=== PATIENT | female | born 1970 | race Caucasian/White ===

== ENCOUNTER 2018-04-04 17:09 | Observation (INO) | payer MEDICAID, OTHER ==
[~2018-04-04] VITALS: Ht 180.3 cm; Wt 68.0 kg
[~2018-04-04 17:09] MED LIST: ADV50250 IH; ALBU18HF2 IH; IBUP-1984 PO; PRED-352 PO
[2018-04-04 18:58] LABS: BASOPHILS # (AUTO) 0.1 X10'3 (0-0.2); BASOPHILS % (AUTO) 0.7 % (0-1); EOSINOPHILS # (AUTO) 0.3 X10'3 (0-0.9); EOSINOPHILS % (AUTO) 3.8 % (0-6); HEMOGLOBIN 13.5 g/dl (12.0-16.0); LYMPHOCYTES # (AUTO) 2.2 X10'3 (1.1-4.8); LYMPHOCYTES % (AUTO) 25.6 % (21-51); MEAN CORPUSCULAR HEMOGLOBIN 30.5 PG (27.0-31.0); MEAN CORPUSCULAR HGB CONC 33.7 g/dL (33.0-36.5); MEAN CORPUSCULAR VOLUME 90.7 FL (78-98); MEAN PLATELET VOLUME 8.2 FL (7.4-10.4); MONOCYTES # (AUTO) 0.6 X10'3 (0-0.9); MONOCYTES % (AUTO) 7.6 % (2-12); NEUTROPHILS # (AUTO) 5.3 X10'3 (1.8-7.7); NEUTROPHILS % (AUTO) 62.3 % (42-75); PLATELET COUNT 440 X10'3 (140-440); RED BLOOD COUNT 4.42 X10'6 (4.20-5.60); RED CELL DISTRIBUTION WIDTH 14.1 % (11.5-14.5); WHITE BLOOD COUNT 8.5 X10'3 (4.5-11.0)
[2018-04-04 19:15] LABS: PARTIAL THROMBOPLASTIN TIME 26 SECONDS (22-32)
[2018-04-04 19:16] LABS: ALANINE AMINOTRANSFERASE 23 U/L (12-78); ALBUMIN 4.1 G/DL (3.4-5.0); ALKALINE PHOSPHATASE 66 IU/L (46-116); ANION GAP 9 (8-16); ASPARTATE AMINO TRANSFERASE 15 U/L (10-37); BILIRUBIN,TOTAL 0.3 MG/DL (0.1-1.0); BLOOD UREA NITROGEN 15 MG/DL (7-18); CALCIUM 9.6 MG/DL (8.5-10.1); CHLORIDE 104 MMOL/L (99-107); CREATININE 0.94 MG/DL (0.40-0.90); GLUCOSE 106 MG/DL (70-104); POTASSIUM 3.8 MMOL/L (3.5-5.1); SODIUM 141 MMOL/L (135-145); TOTAL CARBON DIOXIDE 28.1 MMOL/L (24-32); TOTAL PROTEIN 8.4 G/DL (6.4-8.2); eGFR 63 ML/MIN
[2018-04-04] MEDS ORDERED: aspirin 81mg tab.chew PO ONE (21:05)
[2018-04-04] MEDS ORDERED: acetaminophen 325mg tablet PO PRN (21:40)
[2018-04-04] MEDS ORDERED: ondansetron/PF 4mg/2ml inj IV PRN (21:40)
[2018-04-04] MEDS ORDERED: magnesium hydroxide 30ml (MOM) UD suspension PO PRN (21:40)
[2018-04-04] MEDS ORDERED: mag hydrox/Alum hydrox/simeth 30ml oral suspension PO PRN (21:40)
[2018-04-04] MEDS ORDERED: nitroGLYCERIN 0.4mg SUBLingual tab SL PRN (21:40)
[2018-04-04] MEDS ORDERED: morphine 2 MG/ML inj. syringe IV PRN (21:40)
[2018-04-04] MEDS ORDERED: marijuana INH (22:58)
[2018-04-04 23:00] VITALS: BP 166/82
--- NOTE | 2018-04-04 23:00 | NUR ---
RECEIVED PT FROM ER FOLLOWING VERBAL REPORT FROM MEDICAL PRACTICE MANAGERLINDA SNOWDEN.
[2018-04-04] MEDS: morphine 4 MG/ML inj SYRINge IV PRN (23:43)
[2018-04-05] VITALS (15 sets, daily range): BP systolic 103–145; BP diastolic 65–89
[2018-04-05] MEDS ORDERED: nitroGLYCERIN 0.4mg SUBLingual tab SL PRN (00:15)
[2018-04-05] MEDS ORDERED: aminophylline 250mg/10ml inj. IV PRN (00:15)
[2018-04-05] MEDS ORDERED: metoprolol tartrate 1mg/ml inj IV PRN (00:15)
[2018-04-05] MEDS ORDERED: regadenoson 0.4mg/5ml syringe IV ONE ×2 (00:15→08:54)
[2018-04-05] MEDS: HYDROcodone/acetaminophen 5mg/325mg tablet PO PRN ×4 (00:47→19:08)
[2018-04-05] MEDS: morphine 4 MG/ML inj SYRINge IV PRN (03:37)
--- NOTE | 2018-04-05 06:26 | NUR ---
Problems reprioritized. Patient report given, questions answered & plan of care reviewed with POLO.
--- NOTE | 2018-04-05 06:41 | NUR ---
Patient in room [facility]. I have received report from LINDA BROWN and had the opportunity to ask questions and assume patient care.
[2018-04-05] MEDS ORDERED: aspirin 81mg tablet.DR PO SCH (08:00)
[2018-04-05] MEDS ORDERED: iohexol 350MG/ML 100ml bottle IV ONE (08:08)
--- NOTE | 2018-04-05 08:41 | NUR ---
patient down to ct procedure and then she will go straight to doni scan procedure from ct.
[2018-04-05] MEDS ORDERED: aminophylline inj. 10 ML IV ONE (08:54)
[2018-04-05] MEDS ORDERED: FLU VACC QUAD 2018(5 YR UP)/PF 60 MCG/0.5 ML SYRINGE IM ONE (10:00)
[2018-04-05] MEDS ORDERED: pneumococcal 23-VAL P-sac vacc 25 mcg/0.5ml vial IMVAC ONE (10:00)
--- NOTE | 2018-04-05 10:27 | NUR ---
Patient back to room from procedure. Visitor at bedside.
[2018-04-05] MEDS ORDERED: LORazepam 2 mg/ml vial IV ONE (11:55)
[2018-04-05] MEDS ORDERED: CYCL-1 PO (15:35)
[2018-04-05] MEDS ORDERED: OMEP40CA37 PO (15:35)
--- NOTE | 2018-04-05 17:09 | NUR ---
Discussed with patient discharge instructions and new prescriptions. Patient verbalizes understanding of teaching. List of where patient can establish primary care provider given to patient. Patient ready for dc and is awaiting for her ride.
--- NOTE | 2018-04-05 18:28 | NUR ---
Problems reprioritized. Patient report given, questions answered & plan of care reviewed with dread tavares.
--- NOTE | 2018-04-05 18:30 | NUR ---
Patient in room [facility] 355. I have received report from Neva MCKEON and had the opportunity to ask questions and assume patient care. Pt awaiting arrival of boyfriend. will continue to monitor.
--- NOTE | 2018-04-05 19:50 | NUR ---
Pt d/c home via private vehicle with significant other. IV removed with tip intact, tele d/c'd. all belongings with pt and medications sent home with pt. education materials and d/c paperwork went over with pt and given to pt to take home. pt stable and appropriate for discharge.
== END 2018-04-05 19:50 | disposition home or self-care (01) ==
LOC: ER 17:10 → ED HOLD 21:38 → EDBEDREQ 22:27 → CMPBEDREQ 23:17 → SUR 3N 23:22
PROVIDERS: ADMIT Internal Medicine; ATTEND Family Medicine
DX: R07.89 Other chest pain (principal); F41.9 Anxiety disorder, unspecified; J40 Bronchitis, not specified as acute or chronic; J18.9 Pneumonia, unspecified organism; F12.90 Cannabis use, unspecified, uncomplicated; F17.210 Nicotine dependence, cigarettes, uncomplicated; Z23 Encounter for immunization
CPT/HCPCS: 36415; 71045; 71275; 78452; 80053; 83880; 84484; 85025; 85610; 85730; 87070; 90732; 93005; 93017; 93306; 96374; 96375; 96376; 99284; A9500; G0378; J0280; J2060; J2270; Q2037; Q9967

== ENCOUNTER 2020-10-04 20:13 | Emergency (ER) | payer MEDICAID, OTHER ==
[~2020-10-04] VITALS: Ht 177.8 cm; Wt 83.6 kg
[~2020-10-04 20:13] MED LIST changes: -ADV50250 IH; -ALBU18HF2 IH; +CYCL-1 PO; -IBUP-1984 PO; -PRED-352 PO
[2020-10-04 22:28] LABS: BASOPHILS # (AUTO) 0.2 X10'3 (0-0.2); BASOPHILS % (AUTO) 1.1 % (0-1); EOSINOPHILS # (AUTO) 0.5 X10'3 (0-0.9); EOSINOPHILS % (AUTO) 3.4 % (0-6); HEMATOCRIT 35.6 % (35.0-45.0); HEMOGLOBIN 11.8 g/dl (12.0-16.0); LYMPHOCYTES # (AUTO) 2.2 X10'3 (1.1-4.8); LYMPHOCYTES % (AUTO) 16.3 % (21-51); MEAN CORPUSCULAR HEMOGLOBIN 30.2 PG (27.0-31.0); MEAN CORPUSCULAR HGB CONC 33.2 g/dL (33.0-36.5); MEAN CORPUSCULAR VOLUME 90.8 FL (78-98); MEAN PLATELET VOLUME 7.3 FL (7.4-10.4); MONOCYTES % (AUTO) 7.7 % (2-12); NEUTROPHILS # (AUTO) 9.6 X10'3 (1.8-7.7); NEUTROPHILS % (AUTO) 71.5 % (42-75); PLATELET COUNT 511 X10'3 (140-440); RED BLOOD COUNT 3.92 X10'6 (4.20-5.60); RED CELL DISTRIBUTION WIDTH 14.9 % (11.5-14.5); WHITE BLOOD COUNT 13.5 X10'3 (4.5-11.0)
[2020-10-04 22:47] LABS: ALANINE AMINOTRANSFERASE 14 U/L (12-78); ALBUMIN 3.4 G/DL (3.4-5.0); ALBUMIN/GLOBULIN RATIO 0.8 (1.1-1.5); ALKALINE PHOSPHATASE 83 IU/L (46-116); ANION GAP 10 (8-16); ASPARTATE AMINO TRANSFERASE 16 U/L (10-37); BILIRUBIN,TOTAL 0.2 MG/DL (0.1-1.0); BLOOD UREA NITROGEN 12 MG/DL (7-18); CALCIUM 9.1 MG/DL (8.5-10.1); CHLORIDE 106 MMOL/L (99-107); CREATININE 0.86 MG/DL (0.40-0.90); GLUCOSE 97 MG/DL (70-104); POTASSIUM 3.4 MMOL/L (3.5-5.1); SODIUM 142 MMOL/L (135-145); TOTAL CARBON DIOXIDE 26.4 MMOL/L (24-32); TOTAL PROTEIN 7.5 G/DL (6.4-8.2); eGFR 69 ML/MIN
[2020-10-04] MEDS ORDERED: GABA300C PO (23:05)
--- NOTE | 2020-10-04 23:09 | NUR ---
patient given dc instuctions and instructions to pick up driver prescription at her pharmacy. patient vs wnl. patient has no further complants. dc home.
[2020-10-04 23:11] VITALS: BP 132/89
== END 2020-10-04 23:11 | disposition home or self-care (01) ==
LOC: ER 20:13
DX: M54.10 Radiculopathy, site unspecified (principal); F12.10 Cannabis abuse, uncomplicated; Z88.1 Allergy status to other antibiotic agents
CPT/HCPCS: 36415; 80053; 85025; 99283

== ENCOUNTER 2021-07-11 09:10 | Inpatient (IN) | payer MEDICAID ==
[~2021-07-11] VITALS: Ht 177.8 cm; Wt 89.5 kg
[~2021-07-11 09:10] MED LIST changes: +GABA300C PO
--- NOTE | 2021-07-11 10:05 | NUR ---
BOBBY CASTRO AT BEDSIDE.
[2021-07-11 10:15] LABS: BASOPHILS # (AUTO) 0.1 X10'3 (0-0.2); BASOPHILS % (AUTO) 0.8 % (0-1); EOSINOPHILS # (AUTO) 0.2 X10'3 (0-0.9); EOSINOPHILS % (AUTO) 1.5 % (0-6); HEMATOCRIT 35.2 % (35.0-45.0); LYMPHOCYTES # (AUTO) 1.4 X10'3 (1.1-4.8); LYMPHOCYTES % (AUTO) 11.6 % (21-51); MEAN CORPUSCULAR HGB CONC 34.2 g/dL (33.0-36.5); MEAN CORPUSCULAR VOLUME 90.6 FL (78-98); MEAN PLATELET VOLUME 7.8 FL (7.4-10.4); MONOCYTES # (AUTO) 1.5 X10'3 (0-0.9); NEUTROPHILS # (AUTO) 9.1 X10'3 (1.8-7.7); NEUTROPHILS % (AUTO) 74.1 % (42-75); PLATELET COUNT 451 X10'3 (140-440); RED BLOOD COUNT 3.89 X10'6 (4.20-5.60); RED CELL DISTRIBUTION WIDTH 12.7 % (11.5-14.5); WHITE BLOOD COUNT 12.3 X10'3 (4.5-11.0)
[2021-07-11 10:27] LABS: ALANINE AMINOTRANSFERASE 14 U/L (12-78); ALBUMIN 3.1 G/DL (3.4-5.0); ALBUMIN/GLOBULIN RATIO 0.5 (1.1-1.5); ALKALINE PHOSPHATASE 89 IU/L (46-116); ANION GAP 11 (8-16); ASPARTATE AMINO TRANSFERASE 12 U/L (10-37); BILIRUBIN,TOTAL 0.4 MG/DL (0.1-1.0); BLOOD UREA NITROGEN 9 MG/DL (7-18); BUN/CREATININE RATIO 12.9 (6.6-38.0); CALCIUM 10.2 MG/DL (8.5-10.1); CHLORIDE 97 MMOL/L (99-107); GLUCOSE 103 MG/DL (70-104); POTASSIUM 3.9 MMOL/L (3.5-5.1); SODIUM 135 MMOL/L (135-145); TOTAL CARBON DIOXIDE 27.3 MMOL/L (24-32); TOTAL PROTEIN 8.9 G/DL (6.4-8.2); eGFR 88 ML/MIN
[2021-07-11 10:41] LABS: D-DIMER 4.12 MG/L FEU (0-0.50)
[2021-07-11] MEDS ORDERED: iohexol 350 MG/ML 50ML vial IV ONE (10:59)
[2021-07-11] MEDS ORDERED: heparin 10,000 units/1 ML INJ IV ONE ×6 (12:10→14:10)
[2021-07-11] MEDS ORDERED: heparin 25,000 UNIT/250ml bag 250 ML IV SCH ×3 (12:25→13:02)
[2021-07-11] MEDS ORDERED: heparin 10,000 units/1 ML INJ IV PRN ×2 (12:25→12:45)
[2021-07-11 12:51] LABS: APTT 28 SECONDS (22-32)
[2021-07-11] MEDS: heparin 25,000 UNIT/250ml bag 250 ML IV SCH (12:55)
[2021-07-11 13:14] LABS: BASOPHILS % (AUTO) 0.4 % (0-1); EOSINOPHILS # (AUTO) 0.1 X10'3 (0-0.9); HEMOGLOBIN 12.2 g/dl (12.0-16.0); LYMPHOCYTES # (AUTO) 1.2 X10'3 (1.1-4.8); MEAN CORPUSCULAR HEMOGLOBIN 29.7 PG (27.0-31.0); MEAN CORPUSCULAR HGB CONC 32.8 g/dL (33.0-36.5); MEAN CORPUSCULAR VOLUME 90.5 FL (78-98); MEAN PLATELET VOLUME 7.7 FL (7.4-10.4); MONOCYTES # (AUTO) 1.3 X10'3 (0-0.9); MONOCYTES % (AUTO) 10.8 % (2-12); NEUTROPHILS # (AUTO) 9.2 X10'3 (1.8-7.7); NEUTROPHILS % (AUTO) 77.8 % (42-75); PLATELET COUNT 485 X10'3 (140-440); RED BLOOD COUNT 4.09 X10'6 (4.20-5.60); RED CELL DISTRIBUTION WIDTH 12.8 % (11.5-14.5); WHITE BLOOD COUNT 11.8 X10'3 (4.5-11.0)
--- NOTE | 2021-07-11 13:36 | NUR ---
Patient reports increased pain, Spoke with Dr. Pathak regarding pain management. Dr. Pathak gave verbal order for morphine 4 mg IV once now.
[2021-07-11] MEDS ORDERED: ondansetron/PF 4mg/2ml inj IV ONE (13:40)
[2021-07-11] MEDS ORDERED: morphine 4 MG/ML inj SYRINge IV ONE ×2 (13:40)
[2021-07-11] MEDS ORDERED: albuterol 2.5 MG/3 ML nebule NEB PRN (14:10)
[2021-07-11] MEDS ORDERED: ipratropium/albuterol 3ml nebule NEB PRN (14:10)
[2021-07-11] MEDS ORDERED: magnesium hydroxide 30ml (MOM) UD suspension PO PRN (14:10)
[2021-07-11] MEDS ORDERED: mag hydrox/Alum hydrox/simeth 30ml oral suspension PO PRN (14:10)
[2021-07-11] MEDS ORDERED: POTASSIUM BICARB 20meq eff tab 20 MEQ TABLET.EFF PO PRN ×2 (14:10)
[2021-07-11] MEDS ORDERED: acetaminophen 325mg tablet PO PRN ×2 (14:10)
[2021-07-11] MEDS ORDERED: PERFLUTREN PROTEIN-A MICROSPHR (Optison) 0.22 MG/ML 3ML VIAL IV ONE (14:10)
[2021-07-11] MEDS ORDERED: HYDROcodone/acetaminophen 10/325mg tab PO PRN (14:10)
[2021-07-11] MEDS ORDERED: magnesium 2GM in 50ml NS 50 ML IV PRN (14:10)
[2021-07-11] MEDS ORDERED: HYDROcodone/acetaminophen 5mg/325mg tablet PO PRN (14:10)
[2021-07-11] MEDS ORDERED: magnesium 4gm in 100ml NS 100 ML IV PRN (14:10)
[2021-07-11] MEDS ORDERED: potassium CL 10mEq/100ml bag 100 ML IV PRN (14:10)
[2021-07-11] MEDS ORDERED: HYDROmorphone/PF 0.2 MG/ML SYRINGE IV PRN (14:10)
[2021-07-11] MEDS ORDERED: HYDR-3972 PO (14:21)
[2021-07-11] MEDS ORDERED: ZINC50TA67 PO (14:21)
[2021-07-11] MEDS ORDERED: BACL-11 PO (14:21)
[2021-07-11] MEDS ORDERED: DOCU100C40 PO (14:21)
[2021-07-11] MEDS ORDERED: ASCO-294 PO (14:21)
[2021-07-11] MEDS ORDERED: CHOL20004 PO (14:21)
[2021-07-11] MEDS ORDERED: CALC500T63 PO (14:21)
--- NOTE | 2021-07-11 14:48 | NUR ---
technician plant and maintenance at bedside.
[2021-07-11] MEDS: HYDROmorphone inj. 0.5 MG/0.5 ML DISP.SYRIN IV PRN (16:47)
[2021-07-11 18:00] VITALS: BP 130/76
[2021-07-11] MEDS: K and/or MAG REPLACEMENT MC SCH (20:00)
[2021-07-11] MEDS ORDERED: HYDROmorphone 1 mg/ml syringe IV PRN (20:11)
[2021-07-11] MEDS: docusate sod 100mg capsule PO SCH (20:16)
[2021-07-11 22:00] VITALS: BP 121/74
[2021-07-11] MEDS: heparin 10,000 units/1 ML INJ IV PRN (23:54)
--- NOTE | 2021-07-12 | NUR ---
heparin drip lab reports ptt 28 heparin bolus give see VAN drip rate adjusted
[2021-07-12 02:00] VITALS: BP 118/78
--- NOTE | 2021-07-12 06:26 | NUR ---
Problems reprioritized. Patient report given, questions answered & plan of care reviewed with Linnea MCKEON.
[2021-07-12 06:46] LABS: BASOPHILS # (AUTO) 0.1 X10'3 (0-0.2); EOSINOPHILS # (AUTO) 0.2 X10'3 (0-0.9); EOSINOPHILS % (AUTO) 2.3 % (0-6); HEMATOCRIT 34.8 % (35.0-45.0); HEMOGLOBIN 11.8 g/dl (12.0-16.0); LYMPHOCYTES # (AUTO) 1.6 X10'3 (1.1-4.8); LYMPHOCYTES % (AUTO) 17.2 % (21-51); MEAN CORPUSCULAR HEMOGLOBIN 31.2 PG (27.0-31.0); MEAN CORPUSCULAR HGB CONC 33.9 g/dL (33.0-36.5); MEAN PLATELET VOLUME 7.8 FL (7.4-10.4); MONOCYTES # (AUTO) 0.9 X10'3 (0-0.9); MONOCYTES % (AUTO) 10.2 % (2-12); NEUTROPHILS # (AUTO) 6.4 X10'3 (1.8-7.7); NEUTROPHILS % (AUTO) 69.3 % (42-75); PLATELET COUNT 393 X10'3 (140-440); RED BLOOD COUNT 3.78 X10'6 (4.20-5.60); RED CELL DISTRIBUTION WIDTH 12.7 % (11.5-14.5); WHITE BLOOD COUNT 9.3 X10'3 (4.5-11.0)
[2021-07-12] MEDS: heparin 25,000 UNIT/250ml bag 250 ML IV SCH ×2 (06:50→09:40)
--- NOTE | 2021-07-12 06:53 | NUR ---
Patient in room PCU 3024. I have received report from Jessica and Richelle. Had the opportunity to ask questions and assume patient care.
[2021-07-12 07:00] VITALS: BP 148/82
[2021-07-12 07:24] LABS: ALANINE AMINOTRANSFERASE 13 U/L (12-78); ALBUMIN 2.8 G/DL (3.4-5.0); ALBUMIN/GLOBULIN RATIO 0.5 (1.1-1.5); ALKALINE PHOSPHATASE 82 IU/L (46-116); ANION GAP 6 (8-16); ASPARTATE AMINO TRANSFERASE 14 U/L (10-37); BILIRUBIN,TOTAL 0.4 MG/DL (0.1-1.0); BLOOD UREA NITROGEN 10 MG/DL (7-18); BUN/CREATININE RATIO 15.6 (6.6-38.0); CALCIUM 9.9 MG/DL (8.5-10.1); CHLORIDE 100 MMOL/L (99-107); CREATININE 0.64 MG/DL (0.40-0.90); GLUCOSE 103 MG/DL (70-104); POTASSIUM 4.2 MMOL/L (3.5-5.1); SODIUM 134 MMOL/L (135-145); TOTAL CARBON DIOXIDE 27.6 MMOL/L (24-32); TOTAL PROTEIN 8.1 G/DL (6.4-8.2); eGFR > 90 ML/MIN
--- NOTE | 2021-07-12 07:32 | NUR ---
PAGER ID: [phone] MESSAGE: [id number] Sharifa Jansen: Patient says Biju and julianaed are making her itchy. Is requesting Benadryl. Can you put an order in? Teodora [facility] ext [phone]
--- NOTE | 2021-07-12 07:34 | NUR ---
responded to page, telephone order for patient to receive 1 time IV Benadryl dose of 50mg.
[2021-07-12] MEDS ORDERED: diphenhydrAMINE 50 mg/ml inj IV ONE (07:35)
[2021-07-12] MEDS: K and/or MAG REPLACEMENT MC SCH ×2 (08:00→20:00)
[2021-07-12] MEDS: docusate sod 100mg capsule PO SCH ×2 (08:28→20:13)
[2021-07-12] MEDS: HYDROmorphone inj. 0.5 MG/0.5 ML DISP.SYRIN IV PRN (08:28)
[2021-07-12 11:00] VITALS: BP 132/85
[2021-07-12] MEDS ORDERED: oxyCODONE/APAP 10/325mg tablet PO PRN (11:55)
[2021-07-12] MEDS ORDERED: oxyCODONE/APAP 5-325mg tablet PO PRN (11:55)
[2021-07-12] MEDS: HYDROmorphone 1 mg/ml syringe IV PRN ×2 (12:40→20:13)
[2021-07-12] MEDS: ondansetron/PF 4mg/2ml inj IV PRN ×2 (14:24→21:02)
[2021-07-12 15:00] VITALS: BP 122/81
[2021-07-12] MEDS: baclofen 10mg tablet PO SCH ×2 (16:56→23:20)
[2021-07-12 18:00] VITALS: BP 120/72
--- NOTE | 2021-07-12 18:30 | NUR ---
Patient in room PCU 3024. I have received report from Teodora MCKEON and had the opportunity to ask questions and assume patient care.
--- NOTE | 2021-07-12 18:30 | NUR ---
Patient in room PCU 3024. I have received report from Teodora MCKEON and had the opportunity to ask questions and assume patient care.
--- NOTE | 2021-07-12 18:39 | NUR ---
Problems reprioritized. Patient report given, questions answered & plan of care reviewed with Brigitte MCKEON.
[2021-07-12 22:00] VITALS: BP 125/73
[2021-07-13] MEDS: heparin 10,000 units/1 ML INJ IV PRN (01:43)
[2021-07-13] MEDS: heparin 25,000 UNIT/250ml bag 250 ML IV SCH ×2 (01:45→03:05)
[2021-07-13 02:00] VITALS: BP 125/73
--- NOTE | 2021-07-13 06:29 | NUR ---
Problems reprioritized. Patient report given, questions answered & plan of care reviewed with Teodora MCKEON.
[2021-07-13] MEDS: HYDROmorphone 1 mg/ml syringe IV PRN (06:46)
[2021-07-13 07:00] VITALS: BP 114/77
[2021-07-13] MEDS ORDERED: ascorbic acid 500mg tablet PO SCH (08:00)
[2021-07-13] MEDS ORDERED: non-formulary drug (Zinc 1 TAB) PO SCH (08:00)
[2021-07-13] MEDS: K and/or MAG REPLACEMENT MC SCH (08:00)
[2021-07-13] MEDS ORDERED: calcium carbonate 500mg tablet PO SCH (08:00)
[2021-07-13] MEDS ORDERED: cholecalciferol (vitamin D3) 1,000 unit (25mcg) tablet PO SCH (08:00)
[2021-07-13 08:12] LABS: BASOPHILS % (AUTO) 0.3 % (0-1); EOSINOPHILS # (AUTO) 0.3 X10'3 (0-0.9); EOSINOPHILS % (AUTO) 3.9 % (0-6); HEMATOCRIT 36.1 % (35.0-45.0); HEMOGLOBIN 12.2 g/dl (12.0-16.0); LYMPHOCYTES # (AUTO) 1.8 X10'3 (1.1-4.8); LYMPHOCYTES % (AUTO) 21.8 % (21-51); MEAN CORPUSCULAR HEMOGLOBIN 30.6 PG (27.0-31.0); MEAN CORPUSCULAR HGB CONC 33.6 g/dL (33.0-36.5); MEAN CORPUSCULAR VOLUME 90.8 FL (78-98); MEAN PLATELET VOLUME 7.8 FL (7.4-10.4); MONOCYTES # (AUTO) 0.7 X10'3 (0-0.9); MONOCYTES % (AUTO) 8.3 % (2-12); NEUTROPHILS # (AUTO) 5.5 X10'3 (1.8-7.7); NEUTROPHILS % (AUTO) 65.7 % (42-75); PLATELET COUNT 542 X10'3 (140-440); RED BLOOD COUNT 3.98 X10'6 (4.20-5.60); RED CELL DISTRIBUTION WIDTH 12.4 % (11.5-14.5); WHITE BLOOD COUNT 8.4 X10'3 (4.5-11.0)
[2021-07-13 08:34] LABS: ALANINE AMINOTRANSFERASE 16 U/L (12-78); ALBUMIN/GLOBULIN RATIO 0.6 (1.1-1.5); ALKALINE PHOSPHATASE 88 IU/L (46-116); ANION GAP 10 (8-16); ASPARTATE AMINO TRANSFERASE 15 U/L (10-37); BILIRUBIN,TOTAL 0.4 MG/DL (0.1-1.0); BLOOD UREA NITROGEN 9 MG/DL (7-18); BUN/CREATININE RATIO 12.2 (6.6-38.0); CALCIUM 9.9 MG/DL (8.5-10.1); CHLORIDE 100 MMOL/L (99-107); CREATININE 0.74 MG/DL (0.40-0.90); GLUCOSE 109 MG/DL (70-104); MAGNESIUM 2.1 MG/DL (1.5-2.4); POTASSIUM 3.8 MMOL/L (3.5-5.1); SODIUM 137 MMOL/L (135-145); TOTAL CARBON DIOXIDE 27.3 MMOL/L (24-32); TOTAL PROTEIN 8.4 G/DL (6.4-8.2); eGFR 82 ML/MIN
[2021-07-13] MEDS: ondansetron/PF 4mg/2ml inj IV PRN (09:07)
--- NOTE | 2021-07-13 09:23 | NUR ---
PAGER ID: [phone] MESSAGE: [id number] Sharifa Jansen: Critical PTT lab of 03.09 Teodora U 5441 Addendum: 07/13/21 at 1258 by Teodora Salazar RN Level was 109 not 1.09 notified at 09 of page error
[2021-07-13] MEDS: baclofen 10mg tablet PO SCH ×2 (10:27→17:05)
[2021-07-13] MEDS: docusate sod 100mg capsule PO SCH (10:27)
[2021-07-13 11:00] VITALS: BP 109/77
[2021-07-13] MEDS ORDERED: apixaban 5mg tablet PO ONE ×2 (12:00→16:05)
[2021-07-13] MEDS ORDERED: OXYC1TAB17 PO (12:01)
[2021-07-13] MEDS ORDERED: APIX5TAB3 PO ×3 (12:01→16:59)
[2021-07-13] MEDS ORDERED: ONDA4TAB12 PO (12:01)
--- NOTE | 2021-07-13 12:37 | NUR ---
PAGER ID: [phone] MESSAGE: [id number] Sharifa Jansen: Patient said insurance will not cover Elequis? Is there another option?
[2021-07-13] MEDS ORDERED: RIVA15TA PO ×2 (12:54)
[2021-07-13] MEDS ORDERED: RIVA20TA PO ×2 (12:54)
--- NOTE | 2021-07-13 13:54 | NUR ---
PAGER ID: [phone] MESSAGE: [id number] Sharifa Jansen: Still waiting to see which medication insurance will cover. Just wanted to confirm I can stop the heparin drip and give patient 10mg of elequis as ordered? Teodora PAUL
[2021-07-13 15:00] VITALS: BP 118/75
--- NOTE | 2021-07-13 16:01 | NUR ---
PAGER ID: [phone] MESSAGE: [id number] Sharifa Jansen: Insurance now agreed to cover the Elequis 5mg and are filling it now. OK to discharge patient? Teodora PAUL
[2021-07-13] MEDS ORDERED: rivaroxaban 15mg tablet PO SCH (17:30)
--- NOTE | 2021-07-13 17:30 | NUR ---
Discharge instructions reviewed. PIV removed, catheter intact, no bleeding. Patient wheeled down to [employer] car. Stable upon discharge
[2021-07-13] MEDS ORDERED: apixaban 5mg tablet PO SCH (20:00)
[2021-07-20] MEDS ORDERED: apixaban 5mg tablet PO SCH (20:00)
== END 2021-07-13 17:21 | disposition home or self-care (01) | DRG 134 ==
LOC: ER 09:11 → ED HOLD 14:17 → PCU 3S 17:01
PROVIDERS: ADMIT Family Medicine; ATTEND Family Medicine
PROC: B32T1ZZ Computerized Tomography (CT Scan) of Left Pulmonary Artery using Low Osmolar Contrast (ICD-10-PCS; principal; 2021-07-11)
PROC: B3201ZZ Computerized Tomography (CT Scan) of Thoracic Aorta using Low Osmolar Contrast (ICD-10-PCS; 2021-07-11)
PROC: B32S1ZZ Computerized Tomography (CT Scan) of Right Pulmonary Artery using Low Osmolar Contrast (ICD-10-PCS; 2021-07-11)
DX: I26.99 Other pulmonary embolism without acute cor pulmonale (principal); E87.1 Hypo-osmolality and hyponatremia; D72.823 Leukemoid reaction; R04.2 Hemoptysis; D72.829 Elevated white blood cell count, unspecified; Z86.14 Personal history of Methicillin resistant Staphylococcus aureus infection; Z90.710 Acquired absence of both cervix and uterus; Z87.01 Personal history of pneumonia (recurrent); Z88.1 Allergy status to other antibiotic agents
CPT/HCPCS: 36415; 71045; 71046; 71275; 80053; 83605; 83735; 83880; 84484; 85025; 85379; 85610; 85730; 87040; 93306; 93970; 94760; 94799; 96365; 96375; 96376; 97161; 97530; 99291; G0378; J1170; J1200; J1644; J2270; J2405; Q9967

== ENCOUNTER 2022-05-22 17:15 | Emergency (ER) | payer MEDICAID ==
[~2022-05-22] VITALS: Ht 177.8 cm; Wt 90.0 kg
[~2022-05-22 17:15] MED LIST changes: +APIX5TAB3 PO; +ASCO-294 PO; +BACL-11 PO; +CALC500T63 PO; +CHOL20004 PO; +DOCU100C40 PO; -GABA300C PO; +ONDA4TAB12 PO; +OXYC1TAB17 PO; +ZINC50TA67 PO
[2022-05-22 17:25] VITALS: BP 119/82
== END 2022-05-22 18:55 | disposition home or self-care (01) ==
LOC: ER 17:15
DX: T16.2XXA Foreign body in left ear, initial encounter (principal); F12.90 Cannabis use, unspecified, uncomplicated; Z88.1 Allergy status to other antibiotic agents; X58.XXXA Exposure to other specified factors, initial encounter; Y93.89 Activity, other specified; Y92.89 Other specified places as the place of occurrence of the external cause; Y99.8 Other external cause status
CPT/HCPCS: 99282; 99284

== ENCOUNTER 2023-12-20 09:26 | Inpatient (IN) | payer MEDICAID ==
[~2023-12-20] VITALS: Ht 172.7 cm; Wt 88.6 kg
[~2023-12-20 09:26] MED LIST changes: +ONDA-243 PO; -ONDA4TAB12 PO
[2023-12-20 10:48] LABS: BASOPHILS # (AUTO) 0.1 X10'3 (0-0.2); BASOPHILS % (AUTO) 0.4 % (0-1); EOSINOPHILS % (AUTO) 0.3 % (0-6); HEMATOCRIT 37.9 % (35.0-45.0); HEMOGLOBIN 12.5 g/dl (12.0-16.0); LYMPHOCYTES # (AUTO) 0.8 X10'3 (1.1-4.8); LYMPHOCYTES % (AUTO) 5.5 % (21-51); MEAN CORPUSCULAR HEMOGLOBIN 29.7 PG (27.0-31.0); MEAN CORPUSCULAR HGB CONC 33.1 g/dL (33.0-36.5); MEAN CORPUSCULAR VOLUME 89.7 FL (78-98); MEAN PLATELET VOLUME 7.6 FL (7.4-10.4); MONOCYTES # (AUTO) 1.3 X10'3 (0-0.9); NEUTROPHILS # (AUTO) 12.5 X10'3 (1.8-7.7); NEUTROPHILS % (AUTO) 84.8 % (42-75); PLATELET COUNT 338 X10'3 (140-440); RED BLOOD COUNT 4.22 X10'6 (4.20-5.60); RED CELL DISTRIBUTION WIDTH 13.9 % (11.5-14.5); WHITE BLOOD COUNT 14.7 X10'3 (4.5-11.0)
[2023-12-20 11:10] LABS: ALANINE AMINOTRANSFERASE 21 U/L (12-78); ALBUMIN 3.4 G/DL (3.4-5.0); ALBUMIN/GLOBULIN RATIO 0.7 (1.1-1.5); ALKALINE PHOSPHATASE 79 IU/L (46-116); ANION GAP 11 (8-16); ASPARTATE AMINO TRANSFERASE 19 U/L (10-37); BILIRUBIN,TOTAL 0.9 MG/DL (0.1-1.0); BLOOD UREA NITROGEN 9 MG/DL (7-18); BUN/CREATININE RATIO 10.3 (10.0-20.0); CALCIUM 9.4 MG/DL (8.5-10.1); CHLORIDE 99 MMOL/L (99-107); CREATININE 0.87 MG/DL (0.40-0.90); GLUCOSE 125 MG/DL (70-104); LIPASE 26 U/L (16-77); POTASSIUM 3.9 MMOL/L (3.5-5.1); SODIUM 131 MMOL/L (135-145); TOTAL CARBON DIOXIDE 20.8 MMOL/L (24-32); TOTAL PROTEIN 8.3 G/DL (6.4-8.2); eCRCL 74 ML/MIN; eGFR 68 ML/MIN
[2023-12-20] MEDS: phenazopyridine 100mg tablet PO ONE (11:51)
[2023-12-20] MEDS: ondansetron/PF 4mg/2ml inj IV ONE (11:52)
[2023-12-20] MEDS: ketorolac trometh 15mg/ml vial 15 MG/ML ML IV ONE ×2 (11:52→16:44)
[2023-12-20] MEDS: normal saline 1000ml 1,000 ML IV ONE ×2 (11:52→17:13)
[2023-12-20] MEDS: CefTRIAXone 2gm/D5W 50ml BAG 50 ML IV ONE (12:32)
[2023-12-20] MEDS: HYDROmorphone 1 mg/ml syringe IV ONE (12:36)
[2023-12-20 14:27] LABS: URINE HCG NEGATIVE (NEG)
[2023-12-20 14:41] LABS: CLARITY,URINE SLIGHTLY CLOUDY (Clear); COLOR,URINE ORANGE (Yellow)
[2023-12-20 14:48] LABS: UA COLLECTION TYPE CLN CATCH MIDSTREAM
[2023-12-20 14:49] LABS: SQUAMOUS EPITHELIAL CELL,UR MODERATE /LPF (FEW)
[2023-12-20 14:50] LABS: WBC,URINE TNTC /HPF (0-4)
[2023-12-20 14:51] LABS: BACTERIA,URINE 1+ /HPF (Neg)
[2023-12-20] MEDS ORDERED: magnesium sulf-water 4G/100mL 100 ML IV PRN ×2 (15:35→16:00)
[2023-12-20] MEDS ORDERED: magnesium Cl slow-release 64mg tablet PO PRN ×2 (15:35→16:00)
[2023-12-20] MEDS ORDERED: potassium Cl 20 mEq SR tablet PO PRN ×3 (15:35→16:00)
[2023-12-20] MEDS ORDERED: potassium Cl 40MEQ/1/2NS 520ml 520 ML IV PRN ×2 (15:35→16:00)
[2023-12-20] MEDS ORDERED: magnesium sulf-water 2g/50mL 50 ML IV PRN ×2 (15:35→16:00)
[2023-12-20] MEDS ORDERED: magnesium hydroxide 30ml (MOM) UD suspension PO PRN (16:00)
[2023-12-20] MEDS ORDERED: mag hydrox/Alum hydrox/simeth 30ml oral suspension PO PRN (16:00)
[2023-12-20] MEDS: normal saline 1000ml 1,000 ML IV SCH (16:20)
[2023-12-20] MEDS: piperacillin/tazo 4.5gm/100ml 100 ML IV SCH (17:13)
[2023-12-20] MEDS: K and/or MAG REPLACEMENT MC SCH (19:10)
[2023-12-20] MEDS: acetaminophen 325mg tablet PO PRN (19:18)
[2023-12-20] MEDS ORDERED: K and/or MAG REPLACEMENT MC SCH (20:00)
[2023-12-20] MEDS ORDERED: heparin, porcine 5000 units/ml vial SQ SCH (20:00)
[2023-12-20] MEDS ORDERED: D-AMPHETAMINE PO (20:04)
[2023-12-20] MEDS ORDERED: APIX5TAB3 PO (20:06)
[2023-12-20] MEDS: heparin, porcine 5000 units/ml vial SQ SCH (21:24)
[2023-12-20] MEDS: docusate sod 100mg capsule PO SCH (21:24)
[2023-12-20] MEDS: tamsulosin 0.4mg capsule PO SCH (21:24)
[2023-12-20] MEDS: ondansetron/PF 4mg/2ml inj IV PRN (21:44)
[2023-12-20] MEDS: morphine 2 MG/ML inj. syringe IV PRN (21:45)
[2023-12-20 22:15] VITALS: BP 113/61; PULSE 78; RESP 18; TEMP 98.5; O2SAT 98
[2023-12-20 23:00] VITALS: RESP 18; O2SAT 96
[2023-12-21 05:57] LABS: BASOPHILS # (AUTO) 0.1 X10'3 (0-0.2); BASOPHILS % (AUTO) 0.7 % (0-1); EOSINOPHILS # (AUTO) 0.1 X10'3 (0-0.9); HEMATOCRIT 32.2 % (35.0-45.0); HEMOGLOBIN 10.7 g/dl (12.0-16.0); LYMPHOCYTES # (AUTO) 1.3 X10'3 (1.1-4.8); LYMPHOCYTES % (AUTO) 12.6 % (21-51); MEAN CORPUSCULAR HEMOGLOBIN 30.4 PG (27.0-31.0); MEAN CORPUSCULAR HGB CONC 33.4 g/dL (33.0-36.5); MEAN CORPUSCULAR VOLUME 91.2 FL (78-98); MEAN PLATELET VOLUME 8.1 FL (7.4-10.4); MONOCYTES # (AUTO) 1.2 X10'3 (0-0.9); MONOCYTES % (AUTO) 11.9 % (2-12); NEUTROPHILS # (AUTO) 7.7 X10'3 (1.8-7.7); NEUTROPHILS % (AUTO) 73.8 % (42-75); PLATELET COUNT 261 X10'3 (140-440); RED BLOOD COUNT 3.53 X10'6 (4.20-5.60); RED CELL DISTRIBUTION WIDTH 13.8 % (11.5-14.5); WHITE BLOOD COUNT 10.4 X10'3 (4.5-11.0)
[2023-12-21 06:09] LABS: ALANINE AMINOTRANSFERASE 18 U/L (12-78); ALBUMIN 2.6 G/DL (3.4-5.0); ALBUMIN/GLOBULIN RATIO 0.6 (1.1-1.5); ALKALINE PHOSPHATASE 68 IU/L (46-116); ANION GAP 7 (8-16); ASPARTATE AMINO TRANSFERASE 25 U/L (10-37); BILIRUBIN,TOTAL 0.6 MG/DL (0.1-1.0); BLOOD UREA NITROGEN 8 MG/DL (7-18); BUN/CREATININE RATIO 8.6 (10.0-20.0); CALCIUM 8.3 MG/DL (8.5-10.1); CHLORIDE 105 MMOL/L (99-107); CREATININE 0.93 MG/DL (0.40-0.90); GLUCOSE 120 MG/DL (70-104); POTASSIUM 3.6 MMOL/L (3.5-5.1); SODIUM 135 MMOL/L (135-145); TOTAL CARBON DIOXIDE 23.1 MMOL/L (24-32); TOTAL PROTEIN 6.8 G/DL (6.4-8.2); eCRCL 69 ML/MIN; eGFR 63 ML/MIN
[2023-12-21 07:00] VITALS: BP 122/59; PULSE 90; RESP 17; TEMP 99.2; O2SAT 98
[2023-12-21 08:25] VITALS: RESP 21; O2SAT 98
[2023-12-21 08:40] VITALS: RESP 19; O2SAT 98
[2023-12-21 10:00] VITALS: BP 110/72; PULSE 80; RESP 19; TEMP 99; O2SAT 95
[2023-12-21 20:30] VITALS: BP 106/65; PULSE 66; RESP 17; TEMP 96.8; O2SAT 98
[2023-12-22] VITALS (9 sets, daily range): BP systolic 105–137; BP diastolic 54–70; PULSE 59–100; RESP 14–18; TEMP 96.4–98; O2SAT 95–100
[2023-12-22 05:05] LABS: BASOPHILS # (AUTO) 0.1 X10'3 (0-0.2); EOSINOPHILS # (AUTO) 0.2 X10'3 (0-0.9); EOSINOPHILS % (AUTO) 2.4 % (0-6); HEMATOCRIT 30.5 % (35.0-45.0); HEMOGLOBIN 10.1 g/dl (12.0-16.0); LYMPHOCYTES # (AUTO) 1.1 X10'3 (1.1-4.8); LYMPHOCYTES % (AUTO) 14.5 % (21-51); MEAN CORPUSCULAR VOLUME 90.9 FL (78-98); MONOCYTES # (AUTO) 1.1 X10'3 (0-0.9); MONOCYTES % (AUTO) 13.5 % (2-12); NEUTROPHILS # (AUTO) 5.4 X10'3 (1.8-7.7); NEUTROPHILS % (AUTO) 68.6 % (42-75); PLATELET COUNT 219 X10'3 (140-440); RED BLOOD COUNT 3.35 X10'6 (4.20-5.60); RED CELL DISTRIBUTION WIDTH 13.7 % (11.5-14.5); WHITE BLOOD COUNT 7.9 X10'3 (4.5-11.0)
[2023-12-22 05:17] LABS: ALANINE AMINOTRANSFERASE 22 U/L (12-78); ALBUMIN 2.4 G/DL (3.4-5.0); ALBUMIN/GLOBULIN RATIO 0.6 (1.1-1.5); ALKALINE PHOSPHATASE 69 IU/L (46-116); ANION GAP 8 (8-16); ASPARTATE AMINO TRANSFERASE 16 U/L (10-37); BILIRUBIN,TOTAL 0.5 MG/DL (0.1-1.0); BLOOD UREA NITROGEN 5 MG/DL (7-18); CALCIUM 8.6 MG/DL (8.5-10.1); CHLORIDE 105 MMOL/L (99-107); CREATININE 0.71 MG/DL (0.40-0.90); GLUCOSE 101 MG/DL (70-104); POTASSIUM 3.5 MMOL/L (3.5-5.1); SODIUM 137 MMOL/L (135-145); TOTAL CARBON DIOXIDE 24.5 MMOL/L (24-32); TOTAL PROTEIN 6.6 G/DL (6.4-8.2); eCRCL 90 ML/MIN; eGFR 85 ML/MIN
[2023-12-22] MEDS: ketorolac trometh 15mg/ml vial 15 MG/ML ML IV SCH ×2 (14:00→15:55)
[2023-12-22] MEDS: phenazopyridine 100mg tablet PO SCH (14:04)
[2023-12-22] MEDS ORDERED: HYDROmorphone inj. 0.5 MG/0.5 ML DISP.SYRIN IV PRN (17:05)
[2023-12-22] MEDS: ibuprofen 200mg tablet PO SCH (17:27)
[2023-12-23 06:00] VITALS: BP 145/76; PULSE 51; RESP 16; TEMP 98; O2SAT 99
[2023-12-23 06:09] LABS: BASOPHILS # (AUTO) 0.1 X10'3 (0-0.2); BASOPHILS % (AUTO) 1.4 % (0-1); EOSINOPHILS # (AUTO) 0.3 X10'3 (0-0.9); HEMATOCRIT 32.1 % (35.0-45.0); HEMOGLOBIN 10.6 g/dl (12.0-16.0); LYMPHOCYTES # (AUTO) 1.1 X10'3 (1.1-4.8); LYMPHOCYTES % (AUTO) 19.3 % (21-51); MEAN PLATELET VOLUME 8.6 FL (7.4-10.4); MONOCYTES # (AUTO) 0.8 X10'3 (0-0.9); NEUTROPHILS # (AUTO) 3.5 X10'3 (1.8-7.7); NEUTROPHILS % (AUTO) 60.3 % (42-75); PLATELET COUNT 250 X10'3 (140-440); RED BLOOD COUNT 3.52 X10'6 (4.20-5.60); RED CELL DISTRIBUTION WIDTH 13.6 % (11.5-14.5); WHITE BLOOD COUNT 5.8 X10'3 (4.5-11.0)
[2023-12-23 06:16] LABS: ALANINE AMINOTRANSFERASE 20 U/L (12-78); ALBUMIN 2.3 G/DL (3.4-5.0); ALBUMIN/GLOBULIN RATIO 0.5 (1.1-1.5); ALKALINE PHOSPHATASE 70 IU/L (46-116); ANION GAP 7 (8-16); ASPARTATE AMINO TRANSFERASE 25 U/L (10-37); BILIRUBIN,TOTAL 0.4 MG/DL (0.1-1.0); BLOOD UREA NITROGEN 8 MG/DL (7-18); BUN/CREATININE RATIO 10.7 (10.0-20.0); CALCIUM 8.5 MG/DL (8.5-10.1); CHLORIDE 106 MMOL/L (99-107); CREATININE 0.75 MG/DL (0.40-0.90); GLUCOSE 99 MG/DL (70-104); POTASSIUM 3.3 MMOL/L (3.5-5.1); SODIUM 138 MMOL/L (135-145); TOTAL CARBON DIOXIDE 25.4 MMOL/L (24-32); TOTAL PROTEIN 6.7 G/DL (6.4-8.2); eCRCL 86 ML/MIN; eGFR 80 ML/MIN
[2023-12-23] MEDS: potassium Cl 20 mEq SR tablet PO PRN (07:53)
[2023-12-23 08:10] VITALS: RESP 16
[2023-12-23 10:00] VITALS: BP 126/74; PULSE 65; RESP 17; TEMP 97.9; O2SAT 96
[2023-12-23] MEDS ORDERED: tamsulosin capsule PO (10:33)
[2023-12-23] MEDS ORDERED: IBUP-1594 PO (10:33)
[2023-12-23] MEDS ORDERED: CEPH500C2 PO (10:33)
[2023-12-23 10:37] VITALS: RESP 16
[2023-12-23] MEDS ORDERED: LACT1CAP74 PO (12:33)
[2023-12-23] MEDS ORDERED: PHEN-824 PO (12:33)
[2023-12-23] MEDS ORDERED: CEFD300C3 PO (12:33)
== END 2023-12-23 13:15 | disposition home or self-care (01) | DRG 463 ==
LOC: ER 09:27 → UNDOADMIN 14:22 → ED HOLD 14:22 → SUR 3N 22:10 → ED HOLD 22:10
PROVIDERS: ADMIT Family Medicine; ATTEND Family Medicine
DX: N13.6 Pyonephrosis (principal); Z79.01 Long term (current) use of anticoagulants; Z79.899 Other long term (current) drug therapy; Z88.1 Allergy status to other antibiotic agents; Z86.711 Personal history of pulmonary embolism
CPT/HCPCS: 36415; 71045; 74176; 80053; 81001; 81025; 82948; 83605; 83690; 83735; 84145; 85025; 87040; 87081; 87088; 96365; 96375; 97161; 97530; 99291; G0378; J0696; J1171; J1644; J1885; J2270; J2405; J2543; J7030

== ENCOUNTER 2024-01-09 16:33 | Inpatient (IN) | payer MEDICAID ==
[~2024-01-09] VITALS: Ht 177.8 cm; Wt 101.8 kg
[~2024-01-09 16:33] MED LIST changes: -APIX5TAB3 PO; -BACL-11 PO; -CALC500T63 PO; +CEFD300C3 PO; -CYCL-1 PO; +D-AMPHETAMINE PO; +IBUP-1594 PO; +LACT1CAP74 PO; -ONDA-243 PO; -OXYC1TAB17 PO; +PHEN-824 PO; +tamsulosin capsule PO
[2024-01-09 19:03] LABS: BILIRUBIN,URINE SMALL (Neg); CLARITY,URINE CLOUDY (Clear); COLOR,URINE YELLOW (Yellow); GLUCOSE, URINE NEGATIVE (Neg); KETONES,URINE TRACE mg/dl (Neg); LEUKOCYTE ESTERASE ,URINE SMALL (Neg); NITRITES, URINE NEGATIVE (Neg); OCCULT BLOOD,URINE LARGE (Neg); PROTEIN,URINE 30 mg/dl (Neg); UROBILINOGEN,URINE 0.2 E.U/dL (0.2-1.0)
[2024-01-09 19:09] LABS: SQUAMOUS EPITHELIAL CELL,UR MODERATE /LPF (FEW); UA COLLECTION TYPE CLN CATCH MIDSTREAM
[2024-01-09 19:10] LABS: MUCUS STRANDS FEW /LPF (Neg)
[2024-01-09 19:11] LABS: CAL OXALATE CRYSTALS 2+ /HPF (NEGATIVE); RBC,URINE 20-50 /HPF (0-2)
[2024-01-09 19:13] LABS: BACTERIA,URINE FEW /HPF (Neg)
[2024-01-09] MEDS ORDERED: tamsulosin 0.4mg capsule PO SCH (20:35)
[2024-01-09] MEDS: meperidine/PF 50mg/ml syringe IV ONE (20:46)
[2024-01-09] MEDS: ketorolac trometh 15mg/ml vial 15 MG/ML ML IV ONE ×2 (20:47→21:27)
[2024-01-09] MEDS: ondansetron/PF 4mg/2ml inj IV ONE (20:47)
[2024-01-09] MEDS: tamsulosin 0.4mg capsule PO ONE (20:48)
[2024-01-09] MEDS: HYDROmorphone 1 mg/ml syringe IV ONE ×2 (21:05→21:57)
[2024-01-09 21:25] LABS: BASOPHILS # (AUTO) 0.2 X10'3 (0-0.2); BASOPHILS % (AUTO) 1.3 % (0-1); EOSINOPHILS # (AUTO) 0.3 X10'3 (0-0.9); EOSINOPHILS % (AUTO) 2.6 % (0-6); HEMATOCRIT 36.9 % (35.0-45.0); HEMOGLOBIN 12.3 g/dl (12.0-16.0); LYMPHOCYTES # (AUTO) 1.7 X10'3 (1.1-4.8); LYMPHOCYTES % (AUTO) 13.6 % (21-51); MEAN CORPUSCULAR HEMOGLOBIN 30.1 PG (27.0-31.0); MEAN CORPUSCULAR HGB CONC 33.3 g/dL (33.0-36.5); MEAN CORPUSCULAR VOLUME 90.2 FL (78-98); MEAN PLATELET VOLUME 8.2 FL (7.4-10.4); MONOCYTES # (AUTO) 0.9 X10'3 (0-0.9); NEUTROPHILS # (AUTO) 9.3 X10'3 (1.8-7.7); NEUTROPHILS % (AUTO) 75.5 % (42-75); PLATELET COUNT 380 X10'3 (140-440); RED CELL DISTRIBUTION WIDTH 13.7 % (11.5-14.5); WHITE BLOOD COUNT 12.4 X10'3 (4.5-11.0)
[2024-01-09] MEDS: normal saline 1000ml 1,000 ML IV ONE (21:27)
[2024-01-09] MEDS: normal saline 1000ML IV soln IVB ONE (21:28)
[2024-01-09 21:36] LABS: ALBUMIN 3.8 G/DL (3.4-5.0); ANION GAP 11 (8-16); BLOOD UREA NITROGEN 19 MG/DL (7-18); BUN/CREATININE RATIO 14.6 (10.0-20.0); CALCIUM 9.2 MG/DL (8.5-10.1); CHLORIDE 102 MMOL/L (99-107); GLUCOSE 112 MG/DL (70-104); POTASSIUM 4.1 MMOL/L (3.5-5.1); SODIUM 134 MMOL/L (135-145); eCRCL 53 ML/MIN; eGFR 43 ML/MIN
[2024-01-09] MEDS ORDERED: acetaminophen 325mg tablet PO PRN (22:50)
[2024-01-09] MEDS ORDERED: magnesium hydroxide 30ml (MOM) UD suspension PO PRN (22:50)
[2024-01-09] MEDS ORDERED: magnesium sulf-water 2g/50mL 50 ML IV PRN (22:50)
[2024-01-09] MEDS ORDERED: magnesium Cl slow-release 64mg tablet PO PRN (22:50)
[2024-01-09] MEDS ORDERED: potassium Cl 40MEQ/1/2NS 520ml 520 ML IV PRN (22:50)
[2024-01-09] MEDS ORDERED: magnesium sulf-water 4G/100mL 100 ML IV PRN (22:50)
[2024-01-09] MEDS ORDERED: potassium Cl 20 mEq SR tablet PO PRN ×2 (22:50)
[2024-01-09] MEDS: CefTRIAXone 2gm/D5W 50ml BAG 50 ML IV SCH (22:58)
[2024-01-09] MEDS: pantoprazole 40 MG vial IV SCH (23:36)
[2024-01-09] MEDS: normal saline 1000ml 1,000 ML IV SCH (23:38)
[2024-01-09] MEDS: phenazopyridine 100mg tablet PO ONE (23:39)
[2024-01-09] MEDS ORDERED: HYDROmorphone/PF 0.2 MG/ML SYRINGE IV PRN (23:40)
[2024-01-09] MEDS ORDERED: HYDROcodone/acetaminophen 5mg/325mg tablet PO PRN (23:40)
[2024-01-09] MEDS: HYDROmorphone inj. 0.5 MG/0.5 ML DISP.SYRIN IV PRN (23:57)
[2024-01-09] MEDS: ondansetron/PF 4mg/2ml inj IV PRN (23:59)
[2024-01-10] MEDS ORDERED: ketorolac trometh 15mg/ml vial 15 MG/ML ML IM SCH (02:00)
[2024-01-10] MEDS ORDERED: ketorolac trometh 15mg/ml vial 15 MG/ML ML IV SCH (02:00)
[2024-01-10 02:04] LABS: BASOPHILS # (AUTO) 0.1 X10'3 (0-0.2); BASOPHILS % (AUTO) 1.1 % (0-1); EOSINOPHILS # (AUTO) 0.3 X10'3 (0-0.9); EOSINOPHILS % (AUTO) 2.2 % (0-6); HEMATOCRIT 35.6 % (35.0-45.0); HEMOGLOBIN 11.8 g/dl (12.0-16.0); LYMPHOCYTES # (AUTO) 1.9 X10'3 (1.1-4.8); LYMPHOCYTES % (AUTO) 16.6 % (21-51); MEAN CORPUSCULAR HEMOGLOBIN 30.1 PG (27.0-31.0); MEAN CORPUSCULAR VOLUME 91.3 FL (78-98); MEAN PLATELET VOLUME 8.4 FL (7.4-10.4); MONOCYTES # (AUTO) 0.9 X10'3 (0-0.9); MONOCYTES % (AUTO) 8.1 % (2-12); NEUTROPHILS # (AUTO) 8.2 X10'3 (1.8-7.7); PLATELET COUNT 346 X10'3 (140-440); RED CELL DISTRIBUTION WIDTH 14.2 % (11.5-14.5); WHITE BLOOD COUNT 11.3 X10'3 (4.5-11.0)
[2024-01-10 02:27] LABS: ALANINE AMINOTRANSFERASE 21 U/L (12-78); ALBUMIN 3.4 G/DL (3.4-5.0); ALBUMIN/GLOBULIN RATIO 0.9 (1.1-1.5); ALKALINE PHOSPHATASE 66 IU/L (46-116); ANION GAP 8 (8-16); ASPARTATE AMINO TRANSFERASE 27 U/L (10-37); BILIRUBIN,TOTAL 0.3 MG/DL (0.1-1.0); BLOOD UREA NITROGEN 17 MG/DL (7-18); BUN/CREATININE RATIO 15.7 (10.0-20.0); CALCIUM 8.6 MG/DL (8.5-10.1); CHLORIDE 104 MMOL/L (99-107); CREATININE 1.08 MG/DL (0.40-0.90); GLUCOSE 101 MG/DL (70-104); MAGNESIUM 1.9 MG/DL (1.5-2.4); SODIUM 137 MMOL/L (135-145); TOTAL PROTEIN 7.4 G/DL (6.4-8.2); eCRCL 64 ML/MIN; eGFR 53 ML/MIN
[2024-01-10] MEDS: piperacillin/tazo 3.375gm/50ml 50 ML IV SCH (03:59)
[2024-01-10] MEDS ORDERED: heparin, porcine 5000 units/ml vial SQ SCH (08:00)
[2024-01-10] MEDS: K and/or MAG REPLACEMENT MC SCH (08:47)
[2024-01-10] MEDS: heparin, porcine 5000 units/ml vial SQ SCH (09:38)
[2024-01-10] MEDS: HYDROcodone/acetaminophen 10/325mg tab PO PRN (10:05)
[2024-01-10 10:18] VITALS: BP 102/50; PULSE 60; RESP 14; O2SAT 98
[2024-01-10 10:41] VITALS: TEMP 96.7
[2024-01-10] MEDS: HYDROmorphone 1 mg/ml syringe IV PRN (11:42)
[2024-01-10 18:00] VITALS: BP 98/54; PULSE 63; RESP 16; TEMP 97.3; O2SAT 100
[2024-01-10] MEDS: tamsulosin 0.4mg capsule PO SCH (20:27)
[2024-01-10 22:00] VITALS: BP 125/61; PULSE 55; RESP 16; TEMP 98; O2SAT 96
[2024-01-11 06:00] VITALS: BP 145/74; PULSE 72; RESP 18; TEMP 99.4; O2SAT 97
[2024-01-11 06:12] LABS: BASOPHILS # (AUTO) 0.1 X10'3 (0-0.2); BASOPHILS % (AUTO) 2.6 % (0-1); EOSINOPHILS # (AUTO) 0.3 X10'3 (0-0.9); EOSINOPHILS % (AUTO) 5.7 % (0-6); HEMATOCRIT 34.4 % (35.0-45.0); HEMOGLOBIN 11.2 g/dl (12.0-16.0); LYMPHOCYTES # (AUTO) 1.5 X10'3 (1.1-4.8); LYMPHOCYTES % (AUTO) 32.4 % (21-51); MEAN CORPUSCULAR HEMOGLOBIN 29.5 PG (27.0-31.0); MEAN CORPUSCULAR HGB CONC 32.5 g/dL (33.0-36.5); MEAN CORPUSCULAR VOLUME 90.7 FL (78-98); MEAN PLATELET VOLUME 8.3 FL (7.4-10.4); MONOCYTES # (AUTO) 0.3 X10'3 (0-0.9); MONOCYTES % (AUTO) 6.8 % (2-12); NEUTROPHILS # (AUTO) 2.4 X10'3 (1.8-7.7); NEUTROPHILS % (AUTO) 52.5 % (42-75); PLATELET COUNT 307 X10'3 (140-440); RED CELL DISTRIBUTION WIDTH 14.1 % (11.5-14.5); WHITE BLOOD COUNT 4.6 X10'3 (4.5-11.0)
[2024-01-11 06:39] LABS: ALANINE AMINOTRANSFERASE 24 U/L (12-78); ALBUMIN/GLOBULIN RATIO 0.8 (1.1-1.5); ALKALINE PHOSPHATASE 63 IU/L (46-116); ANION GAP 7 (8-16); ASPARTATE AMINO TRANSFERASE 25 U/L (10-37); BILIRUBIN,TOTAL 0.5 MG/DL (0.1-1.0); BLOOD UREA NITROGEN 10 MG/DL (7-18); BUN/CREATININE RATIO 11.4 (10.0-20.0); CALCIUM 8.7 MG/DL (8.5-10.1); CHLORIDE 107 MMOL/L (99-107); CREATININE 0.88 MG/DL (0.40-0.90); GLUCOSE 86 MG/DL (70-104); MAGNESIUM 1.9 MG/DL (1.5-2.4); POTASSIUM 3.9 MMOL/L (3.5-5.1); SODIUM 139 MMOL/L (135-145); TOTAL CARBON DIOXIDE 24.7 MMOL/L (24-32); TOTAL PROTEIN 6.8 G/DL (6.4-8.2); eCRCL 78 ML/MIN; eGFR 67 ML/MIN
[2024-01-11 07:12] VITALS: RESP 16; O2SAT 97
[2024-01-11] MEDS: CefTRIAXone 2gm/D5W 50ml BAG 50 ML IV SCH (08:23)
[2024-01-11] MEDS ORDERED: HYDR-3965 PO (08:30)
[2024-01-11] MEDS ORDERED: oxyCODONE/APAP 10/325mg tablet PO PRN (08:30)
[2024-01-11] MEDS ORDERED: tamsulosin capsule PO (11:15)
== END 2024-01-11 10:18 | disposition home or self-care (01) | DRG 465 ==
LOC: ER 16:33 → ED HOLD 22:57 → ORTHO 4S 01-10 09:15
PROVIDERS: ADMIT Internal Medicine Critical Care Medicine; ATTEND Internal Medicine
DX: N13.2 Hydronephrosis with renal and ureteral calculous obstruction (principal); N17.9 Acute kidney failure, unspecified; N18.9 Chronic kidney disease, unspecified; D72.828 Other elevated white blood cell count; Z79.899 Other long term (current) drug therapy; Z88.1 Allergy status to other antibiotic agents; Z87.01 Personal history of pneumonia (recurrent)
CPT/HCPCS: 36415; 74176; 80048; 80053; 81001; 83605; 83735; 84145; 85025; 87040; 87081; 87088; 99285; G0378; J0696; J1171; J1644; J1885; J2175; J2405; J2470; J2543; J7030

== ENCOUNTER 2024-03-02 10:47 | Emergency (ER) | payer MEDICAID ==
[~2024-03-02] VITALS: Ht 177.8 cm; Wt 100.0 kg
[~2024-03-02 10:47] MED LIST changes: -CEFD300C3 PO; -CHOL20004 PO; -PHEN-824 PO; -ZINC50TA67 PO
[2024-03-02 11:26] LABS: BASOPHILS # (AUTO) 0.1 X10'3 (0-0.2); BASOPHILS % (AUTO) 0.4 % (0-1); EOSINOPHILS % (AUTO) 0.2 % (0-6); HEMATOCRIT 36.7 % (35.0-45.0); HEMOGLOBIN 12.4 g/dl (12.0-16.0); LYMPHOCYTES # (AUTO) 0.9 X10'3 (1.1-4.8); LYMPHOCYTES % (AUTO) 7.4 % (21-51); MEAN CORPUSCULAR HEMOGLOBIN 30.1 PG (27.0-31.0); MEAN CORPUSCULAR HGB CONC 33.8 g/dL (33.0-36.5); MEAN PLATELET VOLUME 7.9 FL (7.4-10.4); MONOCYTES # (AUTO) 0.6 X10'3 (0-0.9); MONOCYTES % (AUTO) 4.8 % (2-12); NEUTROPHILS # (AUTO) 10.4 X10'3 (1.8-7.7); NEUTROPHILS % (AUTO) 87.2 % (42-75); PLATELET COUNT 410 X10'3 (140-440); RED BLOOD COUNT 4.13 X10'6 (4.20-5.60); RED CELL DISTRIBUTION WIDTH 13.9 % (11.5-14.5)
[2024-03-02 11:48] LABS: ALANINE AMINOTRANSFERASE 28 U/L (12-78); ALBUMIN 3.8 G/DL (3.4-5.0); ALBUMIN/GLOBULIN RATIO 0.9 (1.1-1.5); ALKALINE PHOSPHATASE 74 IU/L (46-116); ANION GAP 12 (8-16); ASPARTATE AMINO TRANSFERASE 29 U/L (10-37); BILIRUBIN,TOTAL 0.8 MG/DL (0.1-1.0); BLOOD UREA NITROGEN 17 MG/DL (7-18); BUN/CREATININE RATIO 14.9 (10.0-20.0); CALCIUM 9.3 MG/DL (8.5-10.1); CHLORIDE 100 MMOL/L (99-107); CREATININE 1.14 MG/DL (0.40-0.90); GLUCOSE 135 MG/DL (70-104); LIPASE 40 U/L (16-77); POTASSIUM 3.6 MMOL/L (3.5-5.1); SODIUM 135 MMOL/L (135-145); TOTAL CARBON DIOXIDE 22.7 MMOL/L (24-32); TOTAL PROTEIN 7.9 G/DL (6.4-8.2); eCRCL 60 ML/MIN; eGFR 49 ML/MIN
[2024-03-02] MEDS: normal saline 1000ml 1,000 ML IV ONE (12:34)
[2024-03-02] MEDS: normal saline 1000ML IV soln IVB ONE (12:35)
[2024-03-02 12:43] LABS: BILIRUBIN,URINE NEGATIVE (Neg); CLARITY,URINE CLEAR (Clear); COLOR,URINE STRAW (Yellow); GLUCOSE, URINE NEGATIVE (Neg); KETONES,URINE TRACE mg/dl (Neg); LEUKOCYTE ESTERASE ,URINE NEGATIVE (Neg); NITRITES, URINE NEGATIVE (Neg); OCCULT BLOOD,URINE NEGATIVE (Neg); PH,URINE 7.5 (4.8-8.0); PROTEIN,URINE NEGATIVE (Neg); UROBILINOGEN,URINE 0.2 E.U/dL (0.2-1.0)
[2024-03-02 12:45] LABS: URINE HCG NEGATIVE (NEG)
[2024-03-02 12:49] LABS: UA COLLECTION TYPE CLN CATCH MIDSTREAM
[2024-03-02] MEDS ORDERED: meperidine/PF 100mg/ml syringe IV STA (12:53)
[2024-03-02] MEDS ORDERED: meperidine/PF 50mg/ml syringe IV STA ×2 (13:05→13:38)
[2024-03-02] MEDS: ondansetron/PF 4mg/2ml inj IV ONE (13:10)
[2024-03-02] MEDS ORDERED: meperidine/PF 25mg/ml syringe IV STA (13:47)
[2024-03-02] MEDS: meperidine/PF 100mg/ml syringe IV STA (14:11)
[2024-03-02] MEDS: sildenafil citrate 20mg tablet PO STA (14:57)
[2024-03-02] MEDS: CefTRIAXone 2gm/D5W 50ml BAG 50 ML IV ONE (15:13)
[2024-03-02] MEDS: ketorolac trometh 15mg/ml vial 15 MG/ML ML IV ONE (16:01)
[2024-03-02 17:09] VITALS: BP 130/76; PULSE 67; RESP 16; TEMP 97.3; O2SAT 97
[2024-03-02] MEDS ORDERED: sildenafil citrate 20mg tablet PO SCH (21:00)
== END 2024-03-02 17:44 | disposition home or self-care (01) ==
LOC: ER 10:47
DX: N13.9 Obstructive and reflux uropathy, unspecified (principal); N13.4 Hydroureter; F12.90 Cannabis use, unspecified, uncomplicated; Z87.442 Personal history of urinary calculi; Z88.1 Allergy status to other antibiotic agents; Z98.890 Other specified postprocedural states
CPT/HCPCS: 36415; 74176; 80053; 81003; 81025; 83690; 85025; 96361; 96365; 96375; 99285; J0696; J1885; J2175; J2405; J7030